=== PATIENT | male | born 1990 | race Asian ===

== ENCOUNTER 2020-02-25 15:15 | Outpatient (CLI) | payer OTHER ==
[2020-02-25] MEDS ORDERED: none per patient (15:43)
== END 2020-02-25 23:59 | disposition home or self-care (01) ==
LOC: STAR 15:15
PROVIDERS: ATTEND Colon & Rectal Surgery
DX: Z02.9 Encounter for administrative examinations, unspecified (principal)

== ENCOUNTER 2020-03-05 05:56 | Day surgery (SDC) | payer OTHER ==
[~2020-03-05] VITALS: Ht 182.9 cm; Wt 101.0 kg
[~2020-03-05 05:56] MED LIST: none per patient
[2020-03-05] MEDS ORDERED: LACTATED RINGERS 1,000 ML IV SCH (06:43)
[2020-03-05] MEDS ORDERED: CHLORHEXIDINE 15 ML UDC ONE (06:44)
[2020-03-05] MEDS ORDERED: BUPIVACAINE/PF-EPI 0.5% 1:200K ONE (06:46)
[2020-03-05] MEDS ORDERED: CHLORHEXIDINE 15 ML UDC MM ONE (07:00)
[2020-03-05] MEDS ORDERED: LABETALOL 5MG/ML, 20ML ONE (07:14)
[2020-03-05] MEDS ORDERED: MAGNESIUM SULFATE 1 GM/2 ML ONE (07:14)
[2020-03-05] MEDS ORDERED: LIDOCAINE 1%, 20ML ONE (07:15)
[2020-03-05] MEDS ORDERED: ROCURONIUM 10MG/ML,5ML ONE (07:20)
[2020-03-05] MEDS ORDERED: PROPOFOL 10 MG/ML, 20ML ONE (07:20)
[2020-03-05] MEDS ORDERED: GLYCOPYRROLATE 0.2MG/1ML, 5ML ONE (07:20)
[2020-03-05] MEDS ORDERED: DEXAMETHASONE 4 MG/ML, 1ML ONE (07:20)
[2020-03-05] MEDS ORDERED: MIDAZOLAM 1 MG/ML, 2ML ONE ×2 (07:20→07:26)
[2020-03-05] MEDS ORDERED: FENTANYL PF 250 MCG/5ML ONE (07:20)
[2020-03-05] MEDS ORDERED: LIDOCAINE-MPF 2% ,5ML ONE (07:20)
[2020-03-05] MEDS ORDERED: DIAZEPAM 5 MG/ML, 2ML IVPush PRN (07:30)
[2020-03-05] MEDS ORDERED: KETOROLAC 30 MG/1 ML IVPush PRN (07:30)
[2020-03-05] MEDS ORDERED: hydrALAzine 20 MG/ML, 1ML IV PRN (07:30)
[2020-03-05] MEDS ORDERED: EPHEDRINE 50 MG/ML, 1ML IVPush PRN (07:30)
[2020-03-05] MEDS ORDERED: FENTANYL PF 100 MCG/2ML IV PRN (07:30)
[2020-03-05] MEDS ORDERED: HALOPERIDOL 5 MG/ML IV PRN (07:30)
[2020-03-05] MEDS ORDERED: MEPERIDINE/PF 25MG/0.5ML IVPush PRN (07:30)
[2020-03-05] MEDS ORDERED: MIDAZOLAM 1 MG/ML, 2ML IV PRN (07:30)
[2020-03-05] MEDS ORDERED: LABETALOL 5MG/ML, 20ML IV PRN (07:30)
[2020-03-05] MEDS ORDERED: ONDANSETRON 2MG/ML, 2ML IVPush PRN (07:30)
[2020-03-05] MEDS ORDERED: HYDROcodone/APAP 7.5-325MG/15ML UDC PO PRN (07:30)
[2020-03-05] MEDS ORDERED: HYDROmorphone 1 MG/ML, 1ML INJ IVPush PRN (07:30)
[2020-03-05] MEDS ORDERED: LORazepam 2 MG/ML, 1ML IVPush PRN (07:30)
[2020-03-05] MEDS ORDERED: DIPHENHYDRAMINE 50 MG/ML, 1ML IVPush PRN (07:30)
[2020-03-05] MEDS ORDERED: OXYcodone 5 MG/5 ML ORAL.SOL UDC PO PRN (07:30)
[2020-03-05] MEDS ORDERED: ALBUTEROL/IPRATROPIUM 2.5MG/0.5MG, 3 ML NPPB PRN (07:30)
[2020-03-05] MEDS ORDERED: METHOCARBAMOL 1,000 MG in DEXTROSE 5% 100 ML IV PRN (07:30)
[2020-03-05] MEDS ORDERED: CEFOTETAN PMX 2GM/50ML 50 ML ONE (07:47)
== END 2020-03-05 09:45 | disposition home or self-care (01) ==
LOC: OUT 05:56
PROVIDERS: ATTEND Colon & Rectal Surgery
DX: K60.3 Anal fistula (principal); Z11.59 Encounter for screening for other viral diseases; G43.909 Migraine, unspecified, not intractable, without status migrainosus
CPT/HCPCS: 36415; 46275; 87635; J1100; J2250; J2704; J3010; J3475; J3490; J7120